=== PATIENT | female | born 1980 | race Caucasian/White ===

== ENCOUNTER 2022-11-04 15:47 | Emergency (ER) | payer OTHER, SELFPAY ==
--- NOTE | 2022-11-04 15:53 | ED.ABDPAIN ---
HPI - Abdominal Pain General Chief Complaint: Abdominal Pain Stated Complaint: abdominal/gall bladder pain Source: patient and RN notes reviewed History of Present Illness HPI narrative: 41-year-old female presents to urgent care with visitor at side. Patient states she developed epigastric and right upper quadrant abdominal pain approximately 2 hours prior to arrival. Patient states she feels gassy. Patient states she did vomit at home with this pain. Patient reports having some pain radiate to her back initially but not currently. Denies any diarrhea or constipation. Denies any fevers chills. Patient admits to currently taking Mounjaro injections x 3 months, last injection was today. Related Data Home Medications Medication Instructions Recorded Confirmed tirzepatide 7.5 mg/0.5 mL 7.5 mg subcut WEEKLY 11/04/22 11/04/22 subcutaneous pen injector (Mounjaro) Allergies Allergy/AdvReac Type Severity Reaction Status Date / Time morphine Allergy Intermediate Nausea and Verified 11/04/22 16:12 Vomiting meperidine AdvReac Unknown Nausea and Verified 11/04/22 16:12 Vomiting Review of Systems Review of Systems: CONSTITUTIONAL: Denies fever, chills, or sweats. EYES: Denies visual changes, redness, or discharge. ENT: Denies otalgia and sore throat CARDIOVASCULAR: Denies chest pain, palpitations, or edema. RESPIRATORY: Denies cough or dyspnea. GASTROINTESTINAL: right upper quadrant abdominal pain and vomiting GENITOURINARY: Denies dysuria or hematuria. SKIN: Denies rash or itching. MUSCULOSKELETAL: Denies back pain, joint pain, or myalgia. NEUROLOGIC: Denies headache, numbness, or weakness. Pertinent positives per HPI. PMFSH Comments At the time of my signature, I reviewed and agree with the nursing past medical, surgical, social, and family history. There is no relevant family history pertinent to the patient complaint. Exam Narrative: GENERAL: This is a well-nourished, well-developed patient, in no apparent distress. HEAD: normocephalic, atraumatic. EYES: Sclera clear/white. Vision is grossly intact. EARS: External ears normal, auditory canals clear and without drainage. Hearing grossly intact. NOSE: External nose normal with no obvious nasal discharge, nares without redness, no rhinorrhea. THROAT: Mucous membranes moist, posterior pharynx clear. CARDIOVASCULAR: Regular rate and rhythm without murmurs, gallops, or rubs. RESPIRATORY: Clear to auscultation. Breath sounds equal bilaterally. No wheezes, rales, or rhonchi. GASTROINTESTINAL: Abdomen soft, tender to epigastric and RUQ. Bowel sounds are active. No hepato-splenomegaly, or palpable masses. No guarding. SKIN: warm, intact with no suspicious lesions or rash, good texture and turgor. NEURO: awake, alert, and oriented to person, place and time. There were no obvious focal neurologic abnormalities. BACK: Nontender without deformity or crepitance. No flank tenderness. Course Course Level of Care: Express Care Visit Vital Signs Vital signs: Vital Signs Temperature 97.4 F L 11/04/22 15:59 Pulse Rate 79 11/04/22 15:59 Respiratory Rate 16 11/04/22 15:59 Blood Pressure 132/86 11/04/22 15:59 Pulse Oximetry 100 11/04/22 15:59 Temperature 97.4 F L 11/04/22 15:59 Pulse Rate 79 11/04/22 15:59 Respiratory Rate 16 11/04/22 15:59 Blood Pressure 132/86 11/04/22 15:59 Pulse Oximetry 100 11/04/22 15:59 reviewed MDM - Abdominal Pain MDM Narrative Medical decision making narrative: Discussed reasons for recommended transfer with pt which include: further evaluation of RUQ pain and vomiting and/or appropriate intervention. Pt agrees to be driven by visitor to [facility]. Pt vomited x 1 in clinic. VSS. Report given to Evaristo ZUNIGA at [facility] who accepts pt. Differential Diagnosis Differential diagnosis: Likely pancreatitis, small bowel obstruction and other ( cholecystitis) Critical Care Time Critic
[2022-11-04 15:59] VITALS: BP 132/86; PULSE 79; RESP 16; TEMP 36.3; O2SAT 100
[2022-11-04] MEDS: ONDANSETRON HCL ODT 4 MG TABLET PO (16:13)
== END 2022-11-04 16:09 | disposition short-term general hospital (02) ==
PROVIDERS: Emergency Provider Nurse Practitioner Family; PCP Physician Assistant
DX: R10.11 Right upper quadrant pain (principal)
CPT/HCPCS: 99213; A9270; G0463

== ENCOUNTER 2022-11-04 16:26 | Emergency (ER) | payer OTHER, SELFPAY ==
[2022-11-04 17:27] VITALS: BP 125/77; PULSE 71; RESP 18; TEMP 36.6; O2SAT 100
[2022-11-04 18:16] LABS: Basophils Percent Auto 0.2 % (0.2-1.2); Eosinophils Percent Auto 0.1 % (0-4.4); Hematocrit 40.5 % (37.0-47.0); Hemoglobin 13.6 g/dL (12.0-15.0); Immature Granulocyte Absolute 0.05 K/mm3 (0.00-0.031); Immature Granulocyte Percent A 0.4 % (0-0.5); Lymphocytes Absolute Auto 1.14 K/mm3 (0.9-3.2); Lymphocytes Percent Auto 8.5 % (18.3-44.2); Mean Corpuscular HGB Conc 33.6 g/dl (32-36); Mean Corpuscular Hemoglobin 30.3 pg (26-34); Mean Corpuscular Volume 90.2 fl (80-100); Mean Platelet Volume 8.8 fl (7.4-10.4); Monocytes Absolute Auto 0.5 K/mm3 (0.1-0.6); Monocytes Percent Auto 3.7 % (2.6-8.5); Neutrophils Absolute Auto 11.6 K/mm3 (1.3-6.7); Neutrophils Percent Auto 87.1 % (45.5-73.1); Platelet Count Result 319 k/mm3 (150-375); Red Blood Count 4.49 M/mm3 (4.2-5.4); Red Cell Distribution Width 13.3 % (11.5-14.5); White Blood Count 13.4 K/mm3 (4.5-10.0)
[2022-11-04 18:28] LABS: Alanine Aminotransferase 23 U/L (6-35); Albumin Level 4.8 g/dL (3.5-5.1); Alkaline Phosphatase 78 U/L (38-126); Anion Gap 6 mmol/L (8-16); Aspartate Amino Transferase 33 U/L (14-36); Bilirubin,Total 0.6 mg/dL (0.2-1.3); Blood Urea Nitrogen 15 mg/dL (7-17); Calcium 9.6 mg/dL (8.4-10.2); Carbon Dioxide 29 mmol/L (22-30); Chloride 103 mmol/L (98-107); Estimated CRCL calculation 120 ml/min; Estimated Glomerular Filt Rate > 60; Glucose 101 mg/dL (65-110); Lipase 49 U/L (23-300); Potassium 4.2 mmol/L (3.4-5.0); Sodium 138 mmol/L (137-145)
[2022-11-04 18:32] LABS: Appearance Urine Clear (Clear); Bacteria Urine None Seen /hpf; Bilirubin Urine Negative (Negative); Blood Urine 2+ (Negative); Color Urine Yellow (Yellow); Glucose Urine UA Negative (Negative); Ketones Urine 1+ mg/dL (Negative); Leukocyte Esterase Ur Negative LEU/UL (Negative); Nitrate Urine Negative (Negative); Non Pathogenic Casts 0-2; Protein Urine Negative (Negative); RBC Urine 0-2 /hpf (0-2); Specific Grav Ur 1.025 (1.001-1.035); Squamous Epithelial Cell Urine Occasional /hpf (Few); Urobilinogen Urine 0.2 mg/dL (<2.0); WBC Urine 0-5 /hpf; pH Urine 5.5 (5.0-9.0)
[2022-11-04 18:38] LABS: Add Urine Microscopic? YES
--- NOTE | 2022-11-04 21:07 | PC.NURSE ---
Pt approached triage desk and states my sister in law is a doctor and im just going to have her look at my results . Pt educated on risks of leaving and pt verbalized understanding. Ambulated out of ED with steady gait in no obvious distress.
== END 2022-11-04 21:07 | disposition left against medical advice (07) ==
LOC: ANHED 21:11
PROVIDERS: Emergency Provider Emergency Medicine; PCP Physician Assistant
DX: R10.11 Right upper quadrant pain (principal)
CPT/HCPCS: 36415; 80053; 81001; 81025; 83690; 85025; 99199

== ENCOUNTER 2022-11-05 10:57 | Outpatient (CLI) | payer OTHER, SELFPAY ==
--- NOTE | ~2022-11-05 | US_ITS ---
EXAMINATION: US abdomen complete DATE: 11/05/2022 11:31 INDICATION: Upper abdominal pain TECHNIQUE: Multiple grayscale and Doppler ultrasound images of the abdomen were obtained. COMPARISON: None available FINDINGS: Bowel gas obscures visualization of the pancreas. The visualized portions of the pancreas a re unremarkable. The liver is normal with normal echogenicity and echotexture. No surface nodularity. Normal hepatopetal flow in the main portal vein. There is wall thickening of the gallbladder. There appears to be a stone near the gallbladder neck. The dilated common bile duct measures 7 mm. There wa s no sonographic Still sign. The visualized portions of the aorta and inferior vena cava are normal. The spleen is normal in appearance and measures 10.5 cm. The right kidney measures 10.5 x 4.6 x 4.7 c m. The left kidney measures 11.1 x 5.6 x 5.3 cm. The kidneys demonstrate normal parenchymal echogenic ity. There is no hydronephrosis. IMPRESSION: 1. Gallbladder wall thickening and probable gallstone near the neck of the gallbladder. Findings coul d reflect acute cholecystitis. Recommend correlation for right upper quadrant pain and consider nucle ar hepatobiliary scan. 2. Mildly dilated common bile duct unclear etiology. Choledocholithiasis not excluded but not sonogra phically detected. Reviewed, dictated and finalized at location L. IMPRESSION: 1. Gallbladder wall thickening and probable gallstone near the neck of the gall bladder. Findings could reflect acute cholecystitis. Recommend correlation for right upper quadrant pain and consider nuclear hepatobiliary scan. 2. Mildly dilated common bile duct unclear etiology. Choledocholithiasis not ex cluded but not sonographically detected.
== END 2022-11-05 10:58 ==
PROVIDERS: PCP Physician Assistant; Visit Provider Physician Assistant
DX: R10.10 Upper abdominal pain, unspecified (principal); K83.8 Other specified diseases of biliary tract
CPT/HCPCS: 76700

== ENCOUNTER 2023-06-10 15:22 | Outpatient (CLI) | payer OTHER, SELFPAY ==
--- NOTE | ~2023-06-10 | XR_ITS ---
EXAMINATION: XR ankle LT min 3V, XR foot LT min 3V DATE: 06/10/2023 15:44 INDICATION: Lateral sided left foot and ankle pain post injury 2 months prior TECHNIQUE: 1. Anteroposterior, mortise, additional oblique and lateral view of the left ankle were obtained. 2. Dorsoplantar, two oblique and lateral views of the left foot were obtained. COMPARISON: None. FINDINGS: Alignment of the left foot and ankle is normal. No fracture or osteochondral lesion. Joint spaces are well maintained. Normal variant type II os peroneus. No ankle joint effusion. The soft tissues are u nremarkable. IMPRESSION: 1. Negative left foot and ankle radiographs. Reviewed, dictated and finalized at location A. [employer] IMPRESSION: 1. Negative left foot and ankle radiographs.
== END 2023-06-10 15:23 ==
PROVIDERS: PCP Physician Assistant; Visit Provider Physician Assistant
DX: M25.572 Pain in left ankle and joints of left foot (principal)
CPT/HCPCS: 73610; 73630